=== PATIENT | female | born 1965 | race Caucasian/White ===

== ENCOUNTER → 2023-10-21 12:45 | Outpatient (BNV) | payer OTHER, SELFPAY | PROVIDERS: Visit Provider Psychiatry & Neurology Psychiatry | DX: F31.62 Bipolar disorder, current episode mixed, moderate (principal); F90.2 Attention-deficit hyperactivity disorder, combined type; F43.10 Post-traumatic stress disorder, unspecified; F10.21 Alcohol dependence, in remission; Z86.59 Personal history of other mental and behavioral disorders | CPT/HCPCS: 99212; 99213; 99214 ==

== ENCOUNTER 2023-10-30 12:30 | Outpatient (RCR) | payer OTHER, SELFPAY ==
[2023-10-17 10:53] VITALS: BP 115/79; PULSE 73; TEMP 37
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
--- NOTE | 2023-10-23 18:54 | HO.PHP ---
The client's case was reviewed and opened in treatment team.
--- NOTE | 2023-10-24 20:08 | HO.PHPPROGNO ---
Subjective Subjective Date of Service: 10/24/23 Reason For Visit: anxiety,depression,ADHD Interim History: Patient seen for follow-up today. No acute issues or cocnerns. She started on Abilify 3 nights ago at 1/2 tablet. Says the first night she experienced anxiety, but says this was even prior to taking the medication and recognized it was just anxiety about starting on a new medication. No issues. She increased the dose as planned to one tablet last night. SHe feels it has been helpful for sleep. She has been more mindful about the effects of Adderall, more cognizant of rebound agitation and irritability and has made efforts to be more mindful in regards to regulating her affect and behaviors, trying to balance the need for taking a stimulant (to address focus) with maintaining emotional stability and is agreeable to titrating the Abilify to target mood regulation. She denies any hopelessness or SI. NO issues today with irritability. She shared some of her past struggles in her marriage and regrets she has in regards to some situations she allowed to happen bc she was trying to appease her , but ultimately it lent to developing a drinking problem to numb the guilt and shame. She was very tearful discussing these past events, but was able to recover from the discussion reasonably well and expressed appreciation for the opportunity to speak openly and candidly. Medication Compliance: Yes Side effects from medications: No Attending Groups: Yes Review of Systems Acute medical concerns: No Mental Status Exam Mental Status Exam Narrative: Alert, oriented, in no acute distress. Well-nourished. Appropriately dressed. Grooming intact. Normal gait, no tics/tremors/dyskinesia, no psychomotor agitation or neurovegetative retardation. Cooperative. Eye contact, Mood is anxious, depressed, less angry. Affect was more subdued, some lability, a few moments of tearfulness, diminished irritability. Speech is abundant, less pressured, otherwise is able to allow for reciprocity. Thought process is circumstantial, ruminative. Thought content relevant to stressors and interpersonal dynamics. No thoughts of giving up on life or SI on inquiry. Denies any aggressive ideation or HI. No paranoid or delusional content elicited. No evidence of psychosis. Cognition grossly intact. Sensorium clear. Insight fair. Judgment tenuous. Assessment & Plan Assessment & Plan (1) Bipolar disorder, current episode mixed, unspecified: Qualifiers: Current episode severity: moderate Qualified Code(s): F31.62 - Bipolar disorder, current episode mixed, moderate Status: Acute Code(s): F31.60 - Bipolar disorder, current episode mixed, unspecified (2) Attention deficit hyperactivity disorder (ADHD), combined type: Status: Acute Code(s): F90.2 - Attention-deficit hyperactivity disorder, combined type (3) Other anxiety states: Status: Acute Code(s): F41.1 - Generalized anxiety disorder (4) Posttraumatic stress disorder: Status: Acute Code(s): F43.10 - Post-traumatic stress disorder, unspecified (5) Alcohol dependence in sustained full remission: Status: Acute Code(s): F10.21 - Alcohol dependence, in remission (6) History of personality disorder: Status: Acute Code(s): Z86.59 - Personal history of other mental and behavioral disorders Plan continue Abilify at 2 mg qd for now continue other regular medations continue to monitor Patient educated on: diagnosis, medication risk/benefits and substance abuse Informed Consent: understands Reason for contiued partial hosp. stay Substantial Risk for: rapid decompensation and med/psych decompensation Certification I certify that partial hospital treatment is medically necessary due to the symptoms and problems resulting from the patient's mental illness and the failure to treat the patient at the partial hospital level of care would likely result in the patient requiring inpatient psychiatric care which could not be prevented at a less intensive level of care. Total time managing care of this patient today ___30_ minutes. Discharge Plan Discharge Attending provider: Melyssa Mc Medications: New aripiprazole 2 mg tablet 2 mg PO BEDTIME Qty: 20 0RF No Action losartan 50 mg tablet 50 mg PO DAILY lorazepam 0.5 mg tablet 0.5 mg PO QID PRN (Reason: Anxiety) Rx Instructions: Last filled 04/26/23 for 30 day supply. Patient stated she takes sparingly. dextroamphetamine-amphetamine 5 mg tablet 1 tab PO TID Stelara 45 mg/0.5 mL syringe 1 subcut Q12W
--- NOTE | 2023-10-27 13:56 | HO.PHP ---
[facility] staff member met with Radha after the third group to receive clarification around SI,plan or intent. Radha disclosed that this morning she had thoughts and a plan but had no intent to act on that plan. Radha voiced she thought about overdosing but didn't act on it because she didn't want her children to blame themselves and then she thought about making it look like a car accident so then her children won't blame themselves. Radha expressed that she has thought like that since she was 19. [facility] staff explored what is stopping her from acting on those plans. Radha reported that her friends brother committed suicide and she saw the devastation that brought to there family and doesn't want to put her family through that. Radha mentioned if she feels she was going to act on it she would reach out to support and mentioned that's why she is here currently. Radha voiced that she also asks her to lock up medication if she feels she is going to act. Radha reported no concerns around acting on anything and mentioned she feels safe. Radha talked about going out to get her nails done after program today and is looking forward to that.
--- NOTE | 2023-10-27 22:34 | HO.PHPPROGNO ---
Subjective Subjective Date of Service: 10/27/23 Reason For Visit: anxiety,depression,ADHD Interim History: Patient seen for follow-up today. She had a particularly triggering night last night after viewing family photos from recent outing to [place] which she was not part of. Became very diregulated about this this morning, having made a vague SI threat, she is now calmer and processes these emotions, stating she has difficulty regulating when emotions run high. She recognizes she says things sometimes she doesnt mean. She shared text she sent to her son setting limits, again gets quite labile and indicates it would need to be admitted psych hospital if her son refuses to visit for the Holidays. She has been taking Abilify 2 mg, no adverse effects although wonders if it is disturbing sleep as she has been tossing and turning and having vivid dreams. She agrees to moving dose earlier in the afternoon to clarify, or may move to AM if not sedating, especially once we increase dose to 5 mg. I have also sent a script for gabapentin as she was able to sleep with 1 mg of Ativan but felt off kilter today and was worried about driving herself to program, which she remedied by drinking a big cup of coffee. SHe denies any thoughts of harming herself or others. Medication Compliance: Yes Side effects from medications: Yes (as noted above) Attending Groups: Yes Review of Systems Acute medical concerns: No Mental Status Exam Mental Status Exam Narrative: Alert, oriented, in no acute distress. Well-nourished. Appropriately dressed. Grooming intact. Normal gait, no tics/tremors/dyskinesia, no psychomotor agitation or neurovegetative retardation. Cooperative. Eye contact, Mood less irritable. Affect labile. Speech is abundant, less pressured, otherwise is able to allow for reciprocity. Thought process is circumstantial, ruminative. Thought content relevant to stressors and interpersonal dynamics. No thoughts of giving up on life or SI on inquiry. Denies any aggressive ideation or HI. No paranoid or delusional content elicited. No evidence of psychosis. Cognition grossly intact. Sensorium clear. Insight fair. Judgment tenuous. Assessment & Plan Assessment & Plan (1) Bipolar disorder, current episode mixed, unspecified: Qualifiers: Current episode severity: moderate Qualified Code(s): F31.62 - Bipolar disorder, current episode mixed, moderate Status: Acute Code(s): F31.60 - Bipolar disorder, current episode mixed, unspecified (2) Other anxiety states: Status: Acute Code(s): F41.1 - Generalized anxiety disorder (3) Attention deficit hyperactivity disorder (ADHD), combined type: Status: Acute Code(s): F90.2 - Attention-deficit hyperactivity disorder, combined type (4) Posttraumatic stress disorder: Status: Acute Code(s): F43.10 - Post-traumatic stress disorder, unspecified (5) Alcohol dependence in sustained full remission: Status: Acute Code(s): F10.21 - Alcohol dependence, in remission (6) History of personality disorder: Status: Acute Code(s): Z86.59 - Personal history of other mental and behavioral disorders Plan increase Abilify to 5 mg qd may start gabapentin 200 mg qhs continue other medications continue to monitor Patient educated on: diagnosis, medication risk/benefits and substance abuse Informed Consent: understands Reason for contiued partial hosp. stay Substantial Risk for: harm to self, rapid decompensation and med/psych decompensation Certification I certify that partial hospital treatment is medically necessary due to the symptoms and problems resulting from the patient's mental illness and the failure to treat the patient at the partial hospital level of care would likely result in the patient requiring inpatient psychiatric care which could not be prevented at a less intensive level of care. Total time managing care of this patient today __30__ minutes. Discharge Plan Discharge Attending provider: Melyssa Mc Medications: New aripiprazole 2 mg tablet 2 mg PO BEDTIME Qty: 20 0RF aripiprazole 5 mg tablet 5 mg PO DAILY 30 Days Qty: 30 0RF gabapentin 100 mg capsule 200 - 300 mg PO BEDTIME PRN (Reason: sleep) Qty: 30 0RF No Action losartan 50 mg tablet 50 mg PO DAILY lorazepam 0.5 mg tablet 0.5 mg PO QID PRN (Reason: Anxiety) Rx Instructions: Last filled 04/26/23 for 30 day supply. Patient stated she takes sparingly. dextroamphetamine-amphetamine 5 mg tablet 1 tab PO TID Stelara 45 mg/0.5 mL syringe 1 subcut Q12W
--- NOTE | 2023-10-30 18:11 | HO.PHPPROGNO ---
Subjective Subjective Date of Service: 10/30/23 Reason For Visit: anxiety,depression,ADHD Interim History: Patient was seen for follow-up today. She anticipates being discharged at the end of the day. She tried moved up the dose to one tablet on Abilify 5mg but was causing some sleep issues so she held the dose last night and tried taking 1/2 tablet of ABilify along with her AM Adderall dose this mroning. She reports I feel my thoughts are super-organized perhaps she says she also feels a bit over-activated. We discussed tomorrow moving the dose of ABilify after lunch since she would better tolerate the Adderall in the morning alone, we will have her try taking the Abilify around early afternoon (in lieu of the 2nd adderal for now) perhaps this will give her an afternoon boost in energy. She reports having more anxiety today than has been usual on account of being her last day in the program, and has found the structure of being in PHP helpful. Medication Compliance: Yes (except as noted above) Side effects from medications: No Attending Groups: Yes Review of Systems Acute medical concerns: No Mental Status Exam Mental Status Exam Narrative: Alert, oriented, in no acute distress. Groomed. Cooperative. Eye contact, Mood less irritable. Affect brighter, intense, less labile. Speech normal. Thought process is circumstantial. Thought content relevant to stressors and interpersonal dynamics. No thoughts of giving up on life or SI on inquiry. Denies any aggressive ideation or HI. No paranoid or delusional content elicited. No evidence of psychosis. Cognition grossly intact. Sensorium clear. Insight fair. Judgment tenuous. Assessment & Plan Assessment & Plan (1) Bipolar disorder, current episode mixed, unspecified: Qualifiers: Current episode severity: moderate Qualified Code(s): F31.62 - Bipolar disorder, current episode mixed, moderate Status: Acute Code(s): F31.60 - Bipolar disorder, current episode mixed, unspecified (2) Attention deficit hyperactivity disorder (ADHD), combined type: Status: Acute Code(s): F90.2 - Attention-deficit hyperactivity disorder, combined type (3) Posttraumatic stress disorder: Status: Acute Code(s): F43.10 - Post-traumatic stress disorder, unspecified (4) Alcohol dependence in sustained full remission: Status: Acute Code(s): F10.21 - Alcohol dependence, in remission (5) History of personality disorder: Status: Acute Code(s): Z86.59 - Personal history of other mental and behavioral disorders Plan [facility] from [facility] continue Abilify at 5 mg/d continue other medications will defer further medication management to outpatient provider Appointment with A Certification I certify that partial hospital treatment is medically necessary due to the symptoms and problems resulting from the patient's mental illness and the failure to treat the patient at the partial hospital level of care would likely result in the patient requiring inpatient psychiatric care which could not be prevented at a less intensive level of care. Total time managing care of this patient today ____ minutes. Discharge Plan Discharge Attending provider: Melyssa Mc Additional Instructions: Radha's next OP therapy appointment with Abida Woodruff is scheduled for November 04, 2023 at 1 PM. Radha's next med management appointment with Dr. Eloisa Dobbs, is scheduled for November 20, 2023 at 11:20 AM. Medications: New aripiprazole 5 mg tablet 5 mg PO DAILY 30 Days Qty: 30 0RF gabapentin 100 mg capsule 200 - 300 mg PO BEDTIME PRN (Reason: sleep) Qty: 30 0RF Continued losartan 50 mg tablet 50 mg PO DAILY lorazepam 0.5 mg tablet 0.5 mg PO QID PRN (Reason: Anxiety) Rx Instructions: Last filled 04/26/23 for 30 day supply. Patient stated she takes sparingly. dextroamphetamine-amphetamine 5 mg tablet 1 tab PO TID Stelara 45 mg/0.5 mL syringe 1 subcut Q12W Stand Alone Forms: Patient Portal Discharge page Patient Education: Bipolar Disorder (DC)
== END 2023-10-30 23:59 | disposition home or self-care (01) ==
LOC: HO.PHPA 12:30
PROVIDERS: Visit Provider Psychiatry & Neurology Psychiatry
DX: F31.62 Bipolar disorder, current episode mixed, moderate (principal); F90.2 Attention-deficit hyperactivity disorder, combined type; F43.10 Post-traumatic stress disorder, unspecified; F41.1 Generalized anxiety disorder; F10.21 Alcohol dependence, in remission; Z86.59 Personal history of other mental and behavioral disorders; Z79.899 Other long term (current) drug therapy
CPT/HCPCS: 90791; 90853